=== PATIENT | male | born 1975 | race African-American/Black ===

== ENCOUNTER 2019-01-01 21:49 | Emergency (ER) | payer BC ==
--- NOTE | 2019-01-01 22:39 | EDM.PDOC ---
ED HPI GENERAL MEDICAL PROBLEM - General Chief Complaint: Skin Complaint Stated Complaint: RASH Time Seen by Provider: 01/01/19 22:26 - History of Present Illness INITIAL COMMENTS - FREE TEXT/NARRATIVE: HISTORY AND PHYSICAL: History of present illness: Patient's 43-year-old male presents with concern of rash 1 month somewhat diffuse and started on his chest and extremities and now has some areas on his scrotum that up in more prominent and now slightly excoriated he's had no urethral discharge or discomfort with urination is monogamous and has no concerns about STDs Review of systems: As per history of present illness and below otherwise all systems reviewed and negative. Past medical history: As per history of present illness and as reviewed below otherwise noncontributory. Surgical history: As per history of present illness and as reviewed below otherwise noncontributory. Social history: No reported history of drug or alcohol abuse. Family history: As per history of present illness and as reviewed below otherwise noncontributory. Physical exam: HEENT: Atraumatic, normocephalic, pupils reactive, negative for conjunctival pallor or scleral icterus, mucous membranes moist, throat clear, neck supple, nontender, trachea midline. Lungs: Clear to auscultation, breath sounds equal bilaterally, chest nontender. Heart: S1S2, regular, negative for clicks, rubs, or JVD. Abdomen: Soft, nondistended, nontender. Negative for masses or hepatosplenomegaly. Negative for costovertebral tenderness. Pelvis: Stable nontender. Genitourinary: Patient has no penile lesions he has some slight excoriations noted on the scrotal area is nontender with minimal erythema. No vesicles noted Rectal: Deferred. Extremities: Atraumatic, negative for cords or calf pain. Neurovascular unremarkable. Neuro: Awake, alert, oriented. Cranial nerves II through XII unremarkable. Cerebellum unremarkable. Motor and sensory unremarkable throughout. Exam nonfocal. Skin: Patient has a sparse maculopapular type rash somewhat diffusely Diagnostics: UA GC chlamydia Therapeutics: None Impression: #1 rash Definitive disposition and diagnosis as appropriate pending reevaluation and review of above. no pain Pain Score (Numeric/FACES): 0 - Related Data Allergies Allergy/AdvReac Type Severity Reaction Status Date / Time No Known Allergies Allergy Verified 01/01/19 22:27 Home Meds: Home Meds . [No Known Home Meds] 01/01/19 [History] ED ROS GENERAL - Review of Systems Review Of Systems: Comprehensive ROS is negative, except as noted in HPI. ED EXAM, SKIN/RASH Exam: See Below (See dictation) Course - Vital Signs Last Recorded V/S: Last Vital Signs Temp 36.6 C 01/01/19 22:27 Pulse 90 01/01/19 22:27 Resp 18 01/01/19 22:27 BP 171/113 H 01/01/19 22:27 Pulse Ox 99 01/01/19 22:27 Departure - Departure Time of Disposition: 22:38 Disposition: Home, Self-Care 01 Clinical Impression: Rash - Discharge Information Referrals: PCP,None [Primary Care Provider] - Additional Instructions: The following information is given to patients seen in the emergency department who are being discharged to home. This information is to outline your options for follow-up care. We provide all patients seen in our emergency department with a follow-up referral. The need for follow-up, as well as the timing and circumstances, are variable depending upon the specifics of your emergency department visit. If you don't have a primary care physician on staff, we will provide you with a referral. We always advise you to contact your personal physician following an emergency department visit to inform them of the circumstance of the visit and for follow-up with them and/or the need for any referrals to a consulting specialist. The emergency department will also refer you to a specialist when appropriate. This referral assures that you have the opportunity for followup care with a specialist. All of these measure are taken in an effort to provide you with optimal care, which includes your followup. Under all circumstances we always encourage you to contact your private physician who remains a resource for coordinating your care. When calling for followup care, please make the office aware that this follow-up is from your recent emergency room visit. If for any reason you are refused follow-up, please contact the [facility] emergency department at and asked to speak to the emergency department charge nurse. [facility] [address] [place] [id number] Lotrimin as directed Keflex as prescribed Medrol as prescribed Benadryl as directed follow-up clinic return as needed as discussed
== END 2019-01-01 23:32 | disposition home or self-care (01) ==
LOC: MW.ED 21:49
DX: R21 Rash and other nonspecific skin eruption (principal)
CPT/HCPCS: 81001; 87491; 87591; 99282; 99283